=== PATIENT | male | born 1955 | race Caucasian/White ===

== ENCOUNTER 2016-09-21 16:38 | Outpatient (CLI) | payer MEDICAID ==
--- NOTE | 2016-09-22 09:28 | XRAY Report ---
THREE-VIEW RIGHT FOOT: 09/21/2016 CLINICAL INDICATION: Right foot pain. FINDINGS: AP, lateral, oblique views of the right foot demonstrate previous calcaneal fracture fixat ion. There is no evidence of acute fracture or hardware complication. Mild degenerative changes are noted in tarsometatarsal joints and midfoot joints. No radiopaque foreign body is seen in the soft tissues. There is no evidence of acute fracture or dislocation. IMPRESSION: PREVIOUS CALCANEAL FRACTURE FIXATION. OSTEOARTHRITIS. NO EVIDENCE OF ACUTE FRACTURE OR HARDWARE COMPLICATION. JOB #: [id number] EXT JOB #:[id number]
== END 2016-09-21 16:39 | disposition home or self-care (01) ==
LOC: DI.S 16:38
PROVIDERS: ATTEND Nurse Practitioner Family
DX: M19.071 Primary osteoarthritis, right ankle and foot (principal)

== ENCOUNTER 2016-09-22 07:49 | Outpatient (CLI) | payer MEDICAID ==
[2016-09-22 11:52] LABS: BASOPHILS # (AUTO) 0.1 10^3/uL (0.0-0.1); BASOPHILS % (AUTO) 0.7 %; EOSINOPHILS # (AUTO) 0.2 10^3/uL (0.0-0.7); EOSINOPHILS % (AUTO) 1.8 %; HCT - HEMATOCRIT 42.8 % (42.0-52.0); HGB - HEMOGLOBIN 14.3 g/dL (14.0-18.0); LYMPHOCYTES # (AUTO) 1.5 10^3/uL (1.5-3.5); LYMPHOCYTES % (AUTO) 17.2 %; MEAN CORPUSCULAR HEMOGLOBIN 31.1 pg (27.0-31.0); MEAN CORPUSCULAR HGB CONC 33.4 g/dL (32.0-36.0); MEAN CORPUSCULAR VOLUME 93.1 fL (80.0-94.0); MEAN PLATELET VOLUME 7.8 fL (7.4-11.4); MONOCYTES # (AUTO) 0.8 10^3/uL (0.0-1.0); MONOCYTES % (AUTO) 8.7 %; NEUTROPHILS # (AUTO) 6.4 10^3/uL (1.5-6.6); NEUTROPHILS % (AUTO) 71.6 %; NUCLEATED RED BLOOD CELLS AUTO 0.2 /100WBC; RED CELL DISTRIBUTION WIDTH 14.3 % (12.0-15.0)
[2016-09-22 12:42] LABS: ALBUMIN/GLOBULIN RATIO 1.1 (1.0-2.2); BILIRUBIN,TOTAL 0.4 mg/dL (0.2-1.0); CALCIUM 9.2 mg/dL (8.5-10.3); CREATININE 0.8 mg/dL (0.6-1.2); POTASSIUM 4.4 mmol/L (3.5-5.0); TOTAL PROTEIN 7.5 g/dL (6.7-8.2); URIC ACID 4.2 mg/dL (2.6-7.2)
== END 2016-09-22 07:50 | disposition home or self-care (01) ==
LOC: LAB.F 07:49
PROVIDERS: ATTEND Nurse Practitioner Family
DX: I10 Essential (primary) hypertension (principal)
CPT/HCPCS: 36415; 80053; 84550; 85025; 85651; 86140

== ENCOUNTER 2016-09-28 08:32 | Outpatient (CLI) | payer MEDICAID ==
[2016-09-28 11:51] LABS: BASOPHILS # (AUTO) 0.1 10^3/uL (0.0-0.1); BASOPHILS % (AUTO) 1.1 %; EOSINOPHILS # (AUTO) 0.2 10^3/uL (0.0-0.7); EOSINOPHILS % (AUTO) 3.4 %; HCT - HEMATOCRIT 43.9 % (42.0-52.0); HGB - HEMOGLOBIN 14.7 g/dL (14.0-18.0); MEAN CORPUSCULAR HEMOGLOBIN 30.9 pg (27.0-31.0); MEAN CORPUSCULAR HGB CONC 33.6 g/dL (32.0-36.0); MEAN PLATELET VOLUME 7.4 fL (7.4-11.4); MONOCYTES # (AUTO) 0.5 10^3/uL (0.0-1.0); MONOCYTES % (AUTO) 7.4 %; NEUTROPHILS # (AUTO) 4.4 10^3/uL (1.5-6.6); NEUTROPHILS % (AUTO) 60.1 %; RED BLOOD COUNT 4.77 10^6/uL (4.70-6.10); RED CELL DISTRIBUTION WIDTH 14.1 % (12.0-15.0); UNCORRECTED WHITE BLOOD COUNT 7.3 x10^3/uL; WHITE BLOOD COUNT 7.3 x10^3/uL (4.8-10.8)
== END 2016-09-28 08:33 | disposition home or self-care (01) ==
LOC: LAB.F 08:32
PROVIDERS: ATTEND Nurse Practitioner Family
DX: M79.671 Pain in right foot (principal)
CPT/HCPCS: 36415; 85025; 85651; 86140

== ENCOUNTER 2016-11-28 07:20 | Outpatient (CLI) | payer MEDICAID ==
[2016-11-28 12:27] LABS: ALBUMIN/GLOBULIN RATIO 1.3 (1.0-2.2); BILIRUBIN,TOTAL 0.4 mg/dL (0.2-1.0); BUN - BLOOD UREA NITROGEN 29 mg/dL (6-20); CALCIUM 8.8 mg/dL (8.5-10.3); CARBON DIOXIDE - CO2 27 mmol/L (21-32); CHLORIDE 102 mmol/L (101-111); CHOL/HDL RATIO 3.5 (<5.0); CHOLESTEROL 147 mg/dL; CREATININE 0.9 mg/dL (0.6-1.2); GFR - MDRD 86 (>89); GLUCOSE 100 mg/dL (70-100); HDL CHOLESTEROL 42 mg/dL; LDL/HDL RATIO 2.3 (<3.6); POTASSIUM 3.9 mmol/L (3.5-5.0); SODIUM 136 mmol/L (135-145); TOTAL PROTEIN 7.3 g/dL (6.7-8.2); TRIGLYCERIDES 50 mg/dL; VLDL CHOLESTEROL 10 mg/dL
== END 2016-11-28 07:21 | disposition home or self-care (01) ==
LOC: LAB.F 07:20
PROVIDERS: ATTEND Nurse Practitioner Family
DX: I10 Essential (primary) hypertension (principal); E78.5 Hyperlipidemia, unspecified; Z12.5 Encounter for screening for malignant neoplasm of prostate
CPT/HCPCS: 36415; 80053; 80061; 84153

== ENCOUNTER 2017-06-06 11:15 | Outpatient (CLI) | payer MEDICAID ==
[2017-06-06 18:22] LABS: ALBUMIN/GLOBULIN RATIO 1.3 (1.0-2.2); BILIRUBIN,TOTAL 0.2 mg/dL (0.2-1.0); CALCIUM 9.4 mg/dL (8.5-10.3); CREATININE 0.8 mg/dL (0.6-1.2); TOTAL PROTEIN 7.2 g/dL (6.7-8.2)
== END 2017-06-06 11:16 | disposition home or self-care (01) ==
LOC: LAB.F 11:15
PROVIDERS: ATTEND Nurse Practitioner Family
DX: I10 Essential (primary) hypertension (principal)
CPT/HCPCS: 36415; 80053

== ENCOUNTER 2017-08-15 08:59 | Outpatient (CLI) | payer MEDICAID ==
--- NOTE | 2017-08-15 13:22 | XRAY Report ---
Procedure Date: 08/15/2017 Accession Number: [id number] / [id number] Procedure: XRS - Knee 2 View LT CPT Code: FULL RESULT: EXAM: Knee 2 View LT DATE: 08/15/2017 9:16 AM CLINICAL HISTORY: KNEE PAIN, LEFT, ACUTE COMPARISON: None. TECHNIQUE: 2 views. FINDINGS: Bones: Normal. No fractures or bone lesions. Joints: Minimal osteoarthritis, with tiny marginal osteophytes. No effusion. Soft Tissues: Normal. No soft tissue swelling. IMPRESSION: Minimal osteoarthritis. RADIA
== END 2017-08-15 09:00 | disposition home or self-care (01) ==
LOC: DI.S 08:59
PROVIDERS: ATTEND Nurse Practitioner Family
DX: M25.562 Pain in left knee (principal); M17.12 Unilateral primary osteoarthritis, left knee

== ENCOUNTER 2017-09-29 18:28 | Outpatient (CLI) | payer OTHER | END 2017-09-29 18:29 | disposition home or self-care (01) | LOC: LAB 18:28 | PROVIDERS: ATTEND Psychiatry & Neurology Psychiatry | DX: Z01.89 Encounter for other specified special examinations (principal) | CPT/HCPCS: 36415 ==

== ENCOUNTER 2018-02-15 11:00 | Outpatient (CLI) | payer OTHER, MEDICAID | END 2018-02-15 11:01 | disposition home or self-care (01) | LOC: EMS 11:00 | PROVIDERS: ATTEND Surgery | DX: S99.912A Unspecified injury of left ankle, initial encounter (principal); W23.1XXA Caught, crushed, jammed, or pinched between stationary objects, initial encounter; Y93.H3 Activity, building and construction; Y92.61 Building [any] under construction as the place of occurrence of the external cause; Y99.0 Civilian activity done for income or pay | CPT/HCPCS: A0425; A0429 ==

== ENCOUNTER 2018-02-15 11:16 | Emergency (ER) | payer OTHER, MEDICAID ==
--- NOTE | 2018-02-15 11:54 | ED Physician Documentation ---
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 denies: Neck pain, Back pain PD PAST MEDICAL HISTORY - Past Surgical History Past Surgical History: Yes - Present Medications Home Medications: Ambulatory Orders Medication Instructions Recorded Confirmed amLODIPine [Norvasc] 10 mg PO DAILY 02/15/18 02/15/18 - Allergies Allergies/Adverse Reactions: Allergies Allergy/AdvReac Type Severity Reaction Status Date / Time No Known Drug Allergies Allergy Verified 02/15/18 11:35 - Social History Does the pt smoke?: Yes Smoking Status: Current every day smoker Does the pt drink ETOH?: No Does the pt have substance abuse?: No - POLST Patient has POLST: No PD ED PE NORMAL - Vitals Vital signs reviewed: Yes - General General: Alert and oriented X 3 - HEENT HEENT: Atraumatic - Neck Neck: No bony TTP - Cardiac Cardiac: RRR - Respiratory Respiratory: No respiratory distress - Abdomen Abdomen: Non tender - Extremities Extremities: Other (LLE: hip non tender full ROM, TTP lateral L thogh s swell bruiise, knee NT and no ACL MCL LCL PCL laxity, no gross deformity tto tib fib some TTP laterally, ankle nT and full ROM but pt co workers primary concern is that it was bent at an unatural way, foot NT, MSV intact) Results - Vitals Vitals: Vital Signs - 24 hr 02/15/18 11:17 Temperature 36.3 C L Heart Rate 87 Respiratory 16 Rate Blood Pressure 176/95 H O2 Saturation 100 Oxygen O2 Source Room air - Rads (name of study) femur Radiology: See rad report (no fx) tib fib Radiology: See rad report (neg) ankle Radiology: See rad report (neg) Departure - Departure Disposition: 01 Home, Self Care Clinical Impression: Fall Qualifiers: Encounter type: initial encounter Qualified Code(s): W19.XXXA - Unspecified fall, initial encounter Leg injury Qualifiers: Encounter type: initial encounter Laterality: left Qualified Code(s): S89.92XA - Unspecified injury of left lower leg, initial encounter Condition: Good Comments: All the xrays are fine. Nothing is broken Recommend applying ice wrapped in a towel for 20 minutes at a time to the painful area of your thigh Tylenol as needed for the pain It is fine for you to go home and walk as tolerated
--- NOTE | 2018-02-15 13:12 | XRAY Report ---
Reason: fall Procedure Date: 02/15/2018 Accession Number: [id number] / [id number] Procedure: XR - Femur 2V LT CPT Code: FULL RESULT: EXAM: LEFT FEMUR RADIOGRAPHY EXAM DATE: 02/15/2018 12:48 PM. CLINICAL HISTORY: Fall. COMPARISON: None. TECHNIQUE: 2 views. FINDINGS: Bones: Normal. No fracture or bone lesion. Joints: The visualized hip and knee joints are normal. No effusions. Soft Tissues: Normal. No soft tissue swelling. IMPRESSION: No fracture is detected. RADIA
--- NOTE | 2018-02-15 13:13 | XRAY Report ---
Reason: fall Procedure Date: 02/15/2018 Accession Number: [id number] / [id number] Procedure: XR - Tib/Fib LT CPT Code: FULL RESULT: EXAM: LEFT TIBIA/FIBULA RADIOGRAPHY EXAM DATE: 02/15/2018 12:48 PM. CLINICAL HISTORY: Fall. COMPARISON: Femur 2view left 02/15/2018 11:56 AM. TECHNIQUE: 2 views. FINDINGS: Bones: Normal. No fracture or bone lesion. Joints: The visualized knee and ankle joints are normal. No effusions. Soft Tissues: Normal. No soft tissue swelling. IMPRESSION: Negative. RADIA
--- NOTE | 2018-02-15 13:13 | XRAY Report ---
Reason: fall Procedure Date: 02/15/2018 Accession Number: [id number] / [id number] Procedure: XR - Ankle 3 View LT CPT Code: FULL RESULT: EXAM: LEFT ANKLE RADIOGRAPHY EXAM DATE: 02/15/2018 12:48 PM. CLINICAL HISTORY: Fall. COMPARISON: Femur 2V left 02/15/2018 11:56 AM. TECHNIQUE: 3 views. FINDINGS: Bones: Normal. No fractures or bone lesions. Joints: Normal. No effusion. No subluxations. The ankle mortise is normally aligned. Soft Tissues: Mild soft tissue swelling. IMPRESSION: No acute fracture or dislocation is identified. RADIA
[2018-02-15 14:18] VITALS: BP 154/85
== END 2018-02-15 14:19 | disposition home or self-care (01) ==
LOC: EDBD → EDUNIT# → ED 11:16
DX: S89.92XA Unspecified injury of left lower leg, initial encounter (principal); W23.0XXA Caught, crushed, jammed, or pinched between moving objects, initial encounter; X50.1XXA Overexertion from prolonged static or awkward postures, initial encounter; W19.XXXA Unspecified fall, initial encounter; Y92.69 Other specified industrial and construction area as the place of occurrence of the external cause; Y99.0 Civilian activity done for income or pay; F17.200 Nicotine dependence, unspecified, uncomplicated
CPT/HCPCS: 1040M; 99282; 99283

== ENCOUNTER 2018-09-06 08:33 | Outpatient (CLI) | payer MEDICAID ==
[2018-09-06 11:00] LABS: ALBUMIN 4.2 g/dL (3.2-5.5); ALKALINE PHOSPHATASE 51 IU/L (42-121); ALT ALANINE AMINOTRANSFERASE 26 IU/L (10-60); AST ASPARTATE AMINOTRANSFERASE 23 IU/L (10-42); BUN - BLOOD UREA NITROGEN 27 mg/dL (6-20); CALCIUM 9.5 mg/dL (8.5-10.3); CARBON DIOXIDE - CO2 26 mmol/L (21-32); CHLORIDE 104 mmol/L (101-111); CHOL/HDL RATIO 3.4 (<5.0); CHOLESTEROL 174 mg/dL; GFR - MDRD 76 (>89); GLUCOSE 91 mg/dL (70-100); HDL CHOLESTEROL 51 mg/dL; LDL CHOLESTEROL,CALCULATED 114 mg/dL; LDL/HDL RATIO 2.2 (<3.6); SODIUM 140 mmol/L (135-145); TOTAL PROTEIN 8.4 g/dL (6.7-8.2); VLDL CHOLESTEROL 9 mg/dL
== END 2018-09-06 08:34 | disposition home or self-care (01) ==
LOC: LAB.S 08:33
PROVIDERS: ATTEND Internal Medicine
DX: E78.5 Hyperlipidemia, unspecified (principal)
CPT/HCPCS: 36415; 80053; 80061; 83721

== ENCOUNTER 2019-12-03 09:38 | Outpatient (CLI) | payer OTHER ==
--- NOTE | 2019-12-03 16:52 | XRAY Report ---
PROCEDURE: Foot 3 View RT INDICATIONS: FOOT JOINT PAIN,RIGHT TECHNIQUE: 3 views of the foot were acquired. COMPARISON: None FINDINGS: Bones: No fractures or dislocations. No suspicious bony lesions. ORIF of the calcaneus. Periarticu lar osteophyte formation at the tibiotalar, talonavicular, naviculocuneiform, first tarsometatarsal j oints, as well as the interphalangeal joints of the digits. Soft tissues: No tibiotalar joint effusion. Achilles tendon appears normal. IMPRESSION: 1. Multifocal osteoarthritis. 2. Postsurgical sequelae. 3. No acute fracture. No osseous lesion. If symptoms and/or clinical suspicion for pathology continue , further assessment with repeat plain films, or advanced imaging (e.g., CT, MRI, or bone scan) is re commended for further assessment. Reviewed by: Hui Zee MD on 12/03/2019 4:50 PM PDT Approved by: Hui Zee MD on 12/03/2019 4:50 PM PDT Station ID: [id number]
== END 2019-12-03 23:59 | disposition home or self-care (01) ==
LOC: DI.S 09:38
PROVIDERS: ATTEND Physician Assistant
DX: M19.071 Primary osteoarthritis, right ankle and foot (principal)

== ENCOUNTER 2019-12-11 15:18 | Outpatient (CLI) | payer OTHER | END 2019-12-11 15:19 | disposition home or self-care (01) | LOC: LAB.S 15:18 | PROVIDERS: ATTEND Internal Medicine | DX: M25.571 Pain in right ankle and joints of right foot (principal) | CPT/HCPCS: 36415; 84550 ==

== ENCOUNTER 2020-10-13 17:06 | Outpatient (CLI) | payer OTHER ==
[2020-10-13 19:51] LABS: BASOPHILS # (AUTO) 0.1 10^3/uL (0.0-0.1); BASOPHILS % (AUTO) 0.8 %; EOSINOPHILS # (AUTO) 0.2 10^3/uL (0.0-0.7); EOSINOPHILS % (AUTO) 1.9 %; HCT - HEMATOCRIT 43.5 % (42.0-52.0); HGB - HEMOGLOBIN 14.3 g/dL (14.0-18.0); LYMPHOCYTES # (AUTO) 1.6 10^3/uL (1.5-3.5); LYMPHOCYTES % (AUTO) 18.8 %; MEAN CORPUSCULAR HEMOGLOBIN 29.5 pg (27.0-31.0); MEAN CORPUSCULAR HGB CONC 32.9 g/dL (32.0-36.0); MEAN CORPUSCULAR VOLUME 89.9 fL (80.0-94.0); MEAN PLATELET VOLUME 10.3 fL (7.4-11.4); MONOCYTES # (AUTO) 0.9 10^3/uL (0.0-1.0); MONOCYTES % (AUTO) 9.7 %; NEUTROPHILS % (AUTO) 68.6 %; PLT - PLATELET COUNT 266 10^3/uL (130-450); RED BLOOD COUNT 4.84 10^6/uL (4.70-6.10); RED CELL DISTRIBUTION WIDTH 15.2 % (12.0-15.0); WHITE BLOOD COUNT 8.7 x10^3/uL (4.8-10.8)
[2020-10-13 20:09] LABS: ALBUMIN 4.3 g/dL (3.2-5.5); ALBUMIN/GLOBULIN RATIO 1.2 (1.0-2.2); ALKALINE PHOSPHATASE 42 IU/L (42-121); ALT ALANINE AMINOTRANSFERASE 19 IU/L (10-60); AST ASPARTATE AMINOTRANSFERASE 18 IU/L (10-42); BILIRUBIN,TOTAL 0.6 mg/dL (0.2-1.0); BUN - BLOOD UREA NITROGEN 23 mg/dL (6-20); CALCIUM 9.5 mg/dL (8.5-10.3); CARBON DIOXIDE - CO2 26 mmol/L (21-32); CHLORIDE 104 mmol/L (101-111); CHOLESTEROL 185 mg/dL; CREATININE 0.9 mg/dL (0.6-1.2); GFR - MDRD 85 (>89); GLUCOSE 85 mg/dL (70-100); HDL CHOLESTEROL 48 mg/dL; LDL CHOLESTEROL,CALCULATED 122 mg/dL; POTASSIUM 3.6 mmol/L (3.5-5.0); SODIUM 140 mmol/L (135-145); TRIGLYCERIDES 74 mg/dL; VLDL CHOLESTEROL 15 mg/dL
[2020-10-13 20:10] LABS: CHOL/HDL RATIO 3.9 (<5.0); LDL/HDL RATIO 2.5 (<3.6)
== END 2020-10-13 17:07 | disposition home or self-care (01) ==
LOC: LAB.S 17:06
PROVIDERS: ATTEND Internal Medicine
DX: I10 Essential (primary) hypertension (principal); E78.5 Hyperlipidemia, unspecified; Z12.5 Encounter for screening for malignant neoplasm of prostate
CPT/HCPCS: 36415; 80053; 80061; 83721; 84153; 85025

== ENCOUNTER 2021-01-01 08:00 | Outpatient (CLI) | payer OTHER | END 2021-01-01 23:59 | disposition home or self-care (01) | LOC: LAB.S 08:00 | PROVIDERS: ATTEND Emergency Medicine | DX: J44.1 Chronic obstructive pulmonary disease with (acute) exacerbation (principal); Z20.822 Contact with and (suspected) exposure to COVID-19 ==

== ENCOUNTER 2021-01-01 08:00 | Outpatient (CLI) | payer OTHER ==
--- NOTE | 2021-01-01 12:38 | XRAY Report ---
PROCEDURE: Chest 2 View X-Ray INDICATIONS: COPD EXACERBATION TECHNIQUE: 2 view(s) of the chest. COMPARISON: None. FINDINGS: SUPPORT DEVICES: None. LUNGS/PLEURA: Prominent interstitial markings. Biapical pleural thickening/scarring. No focal consoli dation, pleural effusion or space-occupying pneumothorax. MEDIASTINUM: The cardiomediastinal silhouette is within normal limits. BONES/SOFT TISSUES: No acute abnormality. IMPRESSION: 1.Prominent interstitial markings, which may reflect pulmonary vascular congestion or chronic change. Reviewed by: Kaden Butts MD on 01/01/2021 12:36 PM PST Approved by: Kaden Butts MD on 01/01/2021 12:36 PM [facility] Station ID: [id number]
== END 2021-01-01 23:59 | disposition home or self-care (01) ==
LOC: DI.S 08:00
PROVIDERS: ATTEND Emergency Medicine
DX: J44.1 Chronic obstructive pulmonary disease with (acute) exacerbation (principal)

== ENCOUNTER 2021-04-03 07:43 | Outpatient (CLI) | payer MEDICARE ==
--- NOTE | 2021-04-03 08:55 | CT Report ---
PROCEDURE: Low Dose Lung Cancer Screen INDICATIONS: SMOKER TECHNIQUE: Noncontrast low-dose images were acquired from the pulmonary apices to the posterior costophrenic ang les. Multiplanar MIP reformats were then acquired. For radiation dose reduction, the following was used: automated exposure control, adjustment of mA and/or kV according to patient size. COMPARISON: None. FINDINGS: Image quality: Excellent. Lungs and pleura: Correlation is made with prior chest radiograph 01/01/2021. Correlation is also ma de with the overlapping portions of soft tissue neck CT, 10/26/2014. Mediastinum: Heart size is normal. Mild to moderate coronary artery calcification is seen. No peric ardial effusion. No mediastinal adenopathy by size criteria. Thoracic aorta and central pulmonary a rteries are normal in size. Esophagus is normal in caliber. No hiatal hernia. Bones and chest wall: No suspicious bony lesions. Age-appropriate degenerative changes are seen. T here is accentuated thoracic kyphosis. No vertebral body compression fractures. No axillary or sup raclavicular adenopathy by size criteria. The thyroid is normal in size and there are no incidental findings. Abdomen: Gallstones can be seen within the gallbladder lumen. Visualized upper abdomen solid organs and bowel loops appear normal in the absence of contrast. IMPRESSION: No suspicious pulmonary nodules are seen. Incidental note is made of: Mild to moderate coronary artery calcification Gallstones Lung RADS category: 1. Recommend annual low-dose CT chest screening examinations, as long as the patient meets the published screening criteria. Reviewed by: Rad Marcus MD on 04/03/2021 7:54 AM [facility] Approved by: Rad Marcus MD on 04/03/2021 7:54 AM [facility] Station ID: [id number]
== END 2021-04-03 07:44 | disposition home or self-care (01) ==
LOC: DI 07:43
PROVIDERS: ATTEND Internal Medicine
DX: Z12.2 Encounter for screening for malignant neoplasm of respiratory organs (principal); F17.210 Nicotine dependence, cigarettes, uncomplicated

== ENCOUNTER 2021-12-09 08:00 | Outpatient (CLI) | payer MEDICARE ==
--- NOTE | 2021-12-09 12:07 | XRAY Report ---
PROCEDURE: Hip w/Pelvis 1V RT INDICATIONS: RIGHT HIP PAIN TECHNIQUE: AP pelvis with lateral view(s) of the right hip(s). COMPARISON: Femur radiographs 02/15/2018. FINDINGS: Bones: Right femur intramedullary serena. No periprosthetic lucency. Bony remodeling at the proximal fe moral shaft. No acute fractures or dislocations. Moderate bilateral hip DJD. Pelvic ring appears inta ct. No suspicious bony lesions. Soft tissues: Right knee chondrocalcinosis. The visualized bowel gas pattern is normal. No suspicio us soft tissue calcifications. Vascular calcifications. IMPRESSION: Expected appearance of the right femur intramedullary serena. Bony remodeling at the proximal right femo ral shaft due to healed fracture. Moderate right hip DJD. Reviewed by: Daniel Díaz MD on 12/09/2021 11:06 AM [facility] Approved by: Daniel Díaz MD on 12/09/2021 11:06 AM [facility] Station ID: [id number]
== END 2021-12-09 23:59 | disposition home or self-care (01) ==
LOC: DI.S 08:00
PROVIDERS: ATTEND Physician Assistant Medical
DX: M16.11 Unilateral primary osteoarthritis, right hip (principal); Z87.81 Personal history of (healed) traumatic fracture

== ENCOUNTER 2022-03-15 12:30 | Outpatient (CLI) | payer MEDICARE ==
[2022-03-15] MEDS ORDERED: GADOBUTROL 7.5 MMOL/7.5 ML VIAL ONE (12:45)
[2022-03-15] MEDS ORDERED: LIDOCAINE-MPF 1% 5 ML VIAL ONE ×2 (12:45→13:32)
[2022-03-15] MEDS ORDERED: GADOBUTROL 7.5 MMOL/7.5 ML VIAL IVP ONE (13:47)
[2022-03-15] MEDS ORDERED: LIDOCAINE-MPF 1% 5 ML VIAL SUBQ ONE (13:48)
--- NOTE | 2022-03-15 16:53 | MRI Report ---
PROCEDURE: ARTHROGRAM HIP - RT INDICATIONS: RIGHT HIP PAIN CONTRAST: Dilute intra-articular gadolinium. TECHNIQUE: After the administration of 10 mL of dilute intra-articular Gadolinium contrast, coronal STIR of the bony pelvis; coronal and oblique axial T1 spin echo with fat saturation, axial T2 fast spin echo with fat saturation, sagittal T1 spin echo with and without fat saturation of the involved hip. COMPARISON: Plain films dated 12/09/2021 FINDINGS: Image quality: Degraded by metallic artifact. Bones and joints: Metallic artifact within the right proximal femur. Moderate joint space narrowing i n particular osteophyte formation at the bilateral hip joints, right greater than left. Mild subchond ral degenerative marrow edema within the right superior acetabulum and right femoral head. Subchondra l cysts within the right femoral head. There is mild ill-defined T2 signal elevation adjacent to the bilateral sacroiliac joints. Bone marrow of the pelvic ring and proximal femurs demonstrates otherwis e normal signal throughout. No intraosseous lesions or fractures. No avascular necrosis of the femo ral head. The visualized lower lumbar spine appears normally aligned. The ligamental, neck, and lab ral plicae appear normal where visualized. Tendons and ligaments: The gluteus medius and minimus tendons appear intact, without associated musc le atrophy. The nearby proximal iliotibial band also appears intact. The iliopsoas tendon appears i ntact, without adjacent bursal fluid collections or evidence for impingement syndrome. Mild T2 signal elevation within the proximal right hamstring tendon. The straight and reflected heads of the rectus femoris muscle origin appear intact, as well as the conjoint tendon. The ligamentum teres appears i ntact where visualized. Labrum and cartilage diffuse degenerative tearing of the right hip labrum. Cartilage surface of the f emoral head appears of normal thickness. No paralabral cysts. The alpha angle of the femur is withi n normal limits at less than 55 degrees. Soft tissues: Visualized muscles demonstrate normal bulk and internal signal. Quadratus femoris mus jonah demonstrates no internal edema to suggest ischiofemoral impingement. The proximal sciatic neurov ascular bundle appears normal adjacent to the hamstring tendons. No free pelvic fluid. Bladder wall thickness is normal. Genitourinary structures and bowel loops appear normal where visualized. IMPRESSION: 1. Right hip osteoarthritis associated with degenerative tearing of the right hip labrum. 2. Mild right hamstring tendinopathy. 3. Mild bilateral sacral iliac joint osteoarthritis. Reviewed by: Hui Zee MD on 03/15/2022 4:52 PM PST Approved by: Hui Zee MD on 03/15/2022 4:52 PM PST Station ID: [id number]
--- NOTE | 2022-03-15 20:24 | XRAY Report ---
PROCEDURE: Arthrogram Needle Placement INDICATIONS: RIGHT HIP PAIN TECHNIQUE: EXAMINATION: Right hip arthrogram for gadolinium injection CLINICAL INFORMATION: Pain right hip. COMPARISON STUDY: None TECHNIQUE: The risks, benefits, and alternatives of arthrography for injection of gadolinium for MRI, including the risks of bleeding, infection, and joint damage, were discussed with the patient and the patient s igned informed consent. The patient was placed supine on the fluoroscopy table and the right hip prep ped and draped in usual sterile fashion. Using local anesthesia and sterile technique the right hip j oint was accessed using a 22 gauge spinal needle. Approximately 6 ml of the following mixture was inj ected: 5 ml saline, 5 ml Ultravist 300, and 0.2 ml Dotarem. The needle was withdrawn. The patient holli erated the procedure well. There were no complications. Fluoroscopy time: < 1 minute FINDINGS: Fluoroscopic images demonstrate intra-articular location of contrast. IMPRESSION: 1. Successful intra-articular injection of gadolinium for MRI. COMPARISON: None. FINDINGS: Right hip arthrogram performed without complication. IMPRESSION: Reviewed by: Jeramie Newby on 03/15/2022 8:23 PM PST Approved by: Jeramie Newyb on 03/15/2022 8:23 PM PST Station ID: [id number]
== END 2022-03-15 12:31 | disposition home or self-care (01) ==
LOC: DI 12:30
PROVIDERS: ATTEND Internal Medicine
DX: M16.11 Unilateral primary osteoarthritis, right hip (principal); S73.101A Unspecified sprain of right hip, initial encounter; M67.961 Unspecified disorder of synovium and tendon, right lower leg; M47.898 Other spondylosis, sacral and sacrococcygeal region
CPT/HCPCS: 27093; 73722; 77002; A9585; Q9965

== ENCOUNTER → 2022-03-17 15:04 | Outpatient (CLI) | payer MEDICARE ==
--- NOTE | 2022-03-17 16:04 | XRAY Report ---
PROCEDURE: Femur RT INDICATIONS: RIGHT HIP PAIN, HAS FEMUR RODDING TECHNIQUE: 2 views of the femur were acquired. COMPARISON: None. FINDINGS: Bones: Healing mid humeral fracture supported by intramedullary serena shows cortical thickening and katiana dging callus. Acetabular and knee joint space narrowing Soft tissues: No suspicious soft tissue calcifications or masses. IMPRESSION: Healing mid humeral fracture supported by intramedullary serena in good position Reviewed by: Adan Cruz MD on 03/17/2022 3:02 PM [facility] Approved by: Adan Cruz MD on 03/17/2022 3:02 PM [facility] Station ID: [id number]
== END | disposition home or self-care (01) ==
LOC: DI.WOS 15:04
PROVIDERS: ATTEND Orthopaedic Surgery
DX: S42.291D Other displaced fracture of upper end of right humerus, subsequent encounter for fracture with routine healing (principal)

== ENCOUNTER 2022-11-18 08:17 | Outpatient (CLI) | payer MEDICARE ==
--- NOTE | 2022-11-18 10:31 | XRAY Report ---
PROCEDURE: Chest 2 View X-Ray INDICATIONS: COPD TECHNIQUE: 2 views of the chest were acquired. COMPARISON: None. FINDINGS: Surgical changes and devices: None. Lungs and pleura: No pleural effusions or pneumothorax. Lungs are clear. Mediastinum: Mediastinal contours appear normal. Heart size is normal. Bones and chest wall: No suspicious bony lesions. Overlying soft tissues appear unremarkable. IMPRESSION: No acute cardiopulmonary process. Reviewed by: Car Romo on 11/18/2022 10:29 AM PDT Approved by: Car Romo on 11/18/2022 10:29 AM PDT Station ID: [id number]
== END 2022-11-18 08:18 | disposition home or self-care (01) ==
LOC: DI.S 08:17
PROVIDERS: ATTEND Internal Medicine
DX: J44.9 Chronic obstructive pulmonary disease, unspecified (principal); F17.200 Nicotine dependence, unspecified, uncomplicated

== ENCOUNTER 2022-11-25 08:01 | Outpatient (CLI) | payer MEDICARE ==
[2022-11-25 14:24] LABS: BASOPHILS # (AUTO) 0.1 10^3/uL (0.0-0.1); BASOPHILS % (AUTO) 1.1 %; EOSINOPHILS # (AUTO) 0.2 10^3/uL (0.0-0.7); EOSINOPHILS % (AUTO) 2.9 %; HCT - HEMATOCRIT 47.3 % (42.0-52.0); HGB - HEMOGLOBIN 15.3 g/dL (14.0-18.0); LYMPHOCYTES # (AUTO) 2.2 10^3/uL (1.5-3.5); LYMPHOCYTES % (AUTO) 34.8 %; MEAN CORPUSCULAR HEMOGLOBIN 30.2 pg (27.0-31.0); MEAN CORPUSCULAR HGB CONC 32.3 g/dL (32.0-36.0); MEAN CORPUSCULAR VOLUME 93.5 fL (80.0-94.0); MEAN PLATELET VOLUME 9.4 fL (7.4-11.4); MONOCYTES # (AUTO) 0.6 10^3/uL (0.0-1.0); MONOCYTES % (AUTO) 8.8 %; NEUTROPHILS # (AUTO) 3.2 10^3/uL (1.5-6.6); NEUTROPHILS % (AUTO) 52.1 %; PLT - PLATELET COUNT 283 10^3/uL (130-450); RED BLOOD COUNT 5.06 10^6/uL (4.70-6.10); RED CELL DISTRIBUTION WIDTH 14.6 % (12.0-15.0); WHITE BLOOD COUNT 6.2 x10^3/uL (4.8-10.8)
[2022-11-25 14:49] LABS: ALBUMIN 4.5 g/dL (3.2-5.5); ALBUMIN/GLOBULIN RATIO 1.7 (1.0-2.2); BILIRUBIN,TOTAL 0.4 mg/dL (0.2-1.0); CALCIUM 9.8 mg/dL (8.5-10.3); CREATININE 0.9 mg/dL (0.6-1.3); POTASSIUM 4.2 mmol/L (3.5-4.5); TOTAL PROTEIN 7.1 g/dL (6.4-8.9)
== END 2022-11-25 08:02 | disposition home or self-care (01) ==
LOC: LAB.S 08:01
PROVIDERS: ATTEND Internal Medicine
DX: J44.1 Chronic obstructive pulmonary disease with (acute) exacerbation (principal)
CPT/HCPCS: 36415; 80053; 85025

== ENCOUNTER 2023-05-02 14:45 | Outpatient (CLI) | payer MEDICARE ==
--- NOTE | 2023-05-02 17:10 | XRAY Report ---
PROCEDURE: Hip 2 View RT INDICATIONS: RIGHT HIP PAIN TECHNIQUE: 3 view(s) of the hip were acquired. COMPARISON: X-ray hip 12/09/2021 FINDINGS: Bones: No fractures or dislocations. No suspicious bony lesions. The visualized pelvic ring appear s intact. Stable right femoral serena fixation. Severe right and moderate to severe left hip arthritic changes. Mildly progressive. Subchondral sclerosis in particular osteophytes are present most severe on the right. Soft tissues: No suspicious soft tissue calcifications or masses. IMPRESSION: Progressive appearance of bilateral hip arthritic change, right greater than left. Reviewed by: Deepika Beck MD on 05/02/2023 5:09 PM PDT Approved by: Deepika Beck MD on 05/02/2023 5:09 PM PDT Station ID: [id number]
== END 2023-05-02 23:59 | disposition home or self-care (01) ==
LOC: DI.WOS 14:45
PROVIDERS: ATTEND Orthopaedic Surgery
DX: M16.0 Bilateral primary osteoarthritis of hip (principal)